=== PATIENT | male | born 1990 | race Caucasian/White ===

== ENCOUNTER 2017-01-14 14:58 | Emergency (ER) | payer BC ==
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
[2017-01-14 18:31] VITALS: BP 146/87
== END 2017-01-14 18:31 | disposition home or self-care (01) ==
LOC: ED 14:58
DX: S00.83XA Contusion of other part of head, initial encounter (principal); V19.9XXA Pedal cyclist (driver) (passenger) injured in unspecified traffic accident, initial encounter; Y93.55 Activity, bike riding; Y92.9 Unspecified place or not applicable
CPT/HCPCS: 70450; 70486; 99282